=== PATIENT | female | born 1995 | race African-American/Black ===

== ENCOUNTER 2017-12-17 11:27 | Emergency (ER) | payer BC ==
[2017-12-17 12:21] LABS: #Basophils 0.1 thou/uL (0.0-0.2); #Eosinphils 0.2 thou/uL (0.0-0.7); #Lymphocytes 2.8 thou/uL (1.20-3.40); #Monocytes 0.8 thou/uL (0.11-0.59); #Neutrophils 7.6 thou/uL (1.40-6.50); %Basophils 0.5 % (0.0-1.0); %Eosinophils 1.3 % (0.0-10.0); %Lymphocytes 24.7 % (28.0-48.0); %Monocytes 7.1 % (0.0-4.0); %Neutrophils 66.3 % (31.0-61.0); Mean Corpuscular Hemoglobin 29.3 pg (25.0-35.0); Mean Corpuscular Volume 91.6 fL (78.0-98.0); Platelet Count 254 thou/uL (130-400); RBC Distribution Width 12.3 % (11.5-14.5); Red Blood Cell (RBC) Count 4.42 mill/uL (4.00-5.20); White Blood Cell (WBC) Count 11.4 thou/uL (4.8-10.8)
[2017-12-17 12:42] LABS: ALT (SGPT) 26 U/L (8-55); AST (SGOT) 47 U/L (5-34); Albumin 4.1 g/dL (3.5-5.0); Alkaline Phosphatase 59 U/L (40-150); Anion Gap 11 mmol/L (10-20); BUN (Urea Nitrogen) 18 mg/dL (7.0-18.7); Bilirubin, Total 0.3 mg/dL (0.2-1.2); Calc. Creatinine Clearance 0 mL/min (70-130); Calcium 9.6 mg/dL (7.8-10.44); Carbon Dioxide 25 mmol/L (22-29); Chloride 108 mmol/L (98-107); Estimated GFR-MDRD Greater than 90; Globulin 3.9 g/dL (2.4-3.5); Glucose 103 mg/dL (70-105); Potassium 4.2 mmol/L (3.5-5.1); Sodium 140 mmol/L (136-145)
[2017-12-17 12:59] LABS: Bilirubin Negative (Negative); Blood, Urine Moderate (Negative); Clarity CLEAR (Clear); Glucose, Urine (Dipstick) Negative (Negative); Leukocyte Negative (Negative); Nitrite Negative (Negative); Protein, Urine (Dipstick) Negative (Neg-Trace); Specific Gravity, Urine 1.029 (1.002-1.036); Urobilinogen 0.2 mg/dL (0.2-1.0); pH, Urine 5.5 (5.0-9.0)
[2017-12-17 13:01] LABS: Pregnancy Test - Urine (BHCG) Negative (Negative); Pregu Control Background? CLEAR/WHITE (CLR/WHITE); Pregu Control Bar Appear? YES (CONTROL BAR); Specific Gravity 1.029 (1.002-1.036)
[2017-12-17 13:04] LABS: Bacteria/HPF None Seen HPF (None Seen); Hyaline Casts/LPF 0-3 HYALINE CAST LPF (0-3 Hyaline); Pathc Cast-AUWi Flag 0.29 (0-2.49); Squamous Epithelial 0-3 HPF (0-3); WBC/HPF 0-3 HPF (0-3)
[2017-12-17] MEDS ORDERED: Ondansetron HCl/PF 4 MG/2 ML Vial ONE (13:41)
--- NOTE | 2017-12-17 13:51 | CT ---
CT ABDOMEN AND PELVIS WITH IV CONTRAST: Date: 12-17-17 History: Nausea, vomiting, and abdominal pain. Diarrhea. Comparison: None available. FINDINGS: Visualized lung bases are clear. Liver, spleen, pancreas, bilateral adrenal glands, kidneys, abdominal aorta and partially distended u rinary bladder demonstrate a normal CT appearance. The uterus and adnexal structures demonstrate a gr ossly normal CT appearance. A retrocecal appendix is visualized without CT evidence of appendicitis. Loops of small bowel are normal in caliber. No free fluid, fluid collection or lymphadenopathy is seen in the abdomen or pelvis. Osseous structures are intact. IMPRESSION: 1. No acute process is seen in the abdomen or pelvis. POS: [facility]
== END 2017-12-17 15:29 | disposition home or self-care (01) ==
LOC: ERS 11:27
DX: R11.2 Nausea with vomiting, unspecified (principal)
CPT/HCPCS: 36415; 74177; 80053; 81003; 81015; 81025; 83690; 85025; 96361; 96374; J2405

== ENCOUNTER 2018-01-07 19:01 | Emergency (ER) | payer BC ==
[2018-01-07] MEDS ORDERED: Acetaminophen 500 MG TAB ONE (19:49)
--- NOTE | 2018-01-07 21:31 | RAD ---
PA AND LATERAL OF THE CHEST: 01/07/18 INDICATION: Sore throat. COMPARISON: None. IMPRESSION: No acute cardiopulmonary abnormality is demonstrated. COMMENTS: The lungs are clear. Cardiothymic silhouette is within normal limits. No acute osseous abnormality is evident. POS: [facility]
== END 2018-01-07 20:29 | disposition home or self-care (01) ==
LOC: ERS 19:01
DX: J02.9 Acute pharyngitis, unspecified (principal); J40 Bronchitis, not specified as acute or chronic
CPT/HCPCS: 71046; 87081; 87430